=== PATIENT | female | born 1990 | race Two or more races ===

== ENCOUNTER 2020-04-14 06:00 | Day surgery (SDC) | payer OTHER ==
[2020-04-14] MEDS ORDERED: MOTRIN IB200 M1 PO (09:15)
== END 2020-04-14 14:55 | disposition home or self-care (01) ==
LOC: CIR.AMB 06:00
PROVIDERS: ATTEND Obstetrics & Gynecology
DX: N84.0 Polyp of corpus uteri (principal); Z20.828 Contact with and (suspected) exposure to other viral communicable diseases